=== PATIENT | female | born 1945 | race Caucasian/White ===

== ENCOUNTER 2018-03-04 05:55 | Emergency (ER) | payer MEDICARE, OTHER ==
[~2018-03-04] VITALS: Ht 165.1 cm; Wt 72.6 kg
[~2018-03-04 05:55] MED LIST: ALLEGRA ALLERG180 MG PO; ASPI81CH PO; Augmentin 875-1 EACH PO; B-6200 MG PO; ESOM20 PO; Estrace Vagin42.5 GM TOP; HYDR1TAB94 PO; LIMBREL PO; Mirapex0.25 MG PO; NAPR220 PO; PROBIOTIC1 EAC1 PO; RANI150 PO; SIMV40 PO; Synthroid125 MCG PO; TOLT4 PO; ZESTORETIC 20-1 EAC1 PO
[2018-03-04] MEDS ORDERED: ERGO400 PO (06:17)
[2018-03-04] MEDS ORDERED: VITB2 (06:17)
[2018-03-04 06:31] LABS: Source, Urine Clean Catch
[2018-03-04 06:39] LABS: Bilirubin, Urine Neg (Neg); Blood, Urine 5+ (Neg); Glucose Qualitative, Urine Neg (Neg); Ketones, Urine Neg (Neg); Leukocyte Esterase, Urine 3+ (Neg); Nitrite, Urine Neg (Neg); Protein, Urine 3+ (Neg); Specific Gravity, Urine 1.025 (1.003-1.022); Urobilinogen, Urine NORM (Normal)
[2018-03-04 06:45] LABS: Appearance, Urine Hazy (Clear); Color, Urine Yellow (P-Yellow)
[2018-03-04 06:46] LABS: Bacteria Few /hpf; Red Blood Cells, Urine 25-50 /hpf (0-2); Squamous Epithelial Cells Few /hpf (Few); White Blood Cells, Urine 25-50 /hpf (0-5)
[2018-03-04] MEDS ORDERED: CEPH500 PO (06:59)
[2018-03-04] MEDS ORDERED: Pyridium200 MG PO (06:59)
== END 2018-03-04 07:11 | disposition home or self-care (01) ==
LOC: ER 05:55
PROVIDERS: Emergency Medicine
DX: N39.0 Urinary tract infection, site not specified (principal); Z79.899 Other long term (current) drug therapy; Z88.2 Allergy status to sulfonamides
CPT/HCPCS: 81001; 87077; 87086; 87186; 99283

== ENCOUNTER 2018-05-31 08:48 | Day surgery (SDC) | payer MEDICARE, OTHER ==
[~2018-05-31] VITALS: Ht 165.1 cm; Wt 74.5 kg
[~2018-05-31 08:48] MED LIST changes: +ALLEGRA ALLERG180 M1 PO; +Aspir 8181 MG PO; +CEPH500 PO; +ERGO400 PO; +LEVSOD125 PO; +MAGNESIUM250 MG PO; +NEXIUM 24HR20 M3 PO; +Omega 3 1,0001 EACH PO; +PYRI100 PO; +Pyridium200 MG PO; +TRUBIOTICS PO; +VITB2; +VITB2 PO; +Zantac150 MG PO
--- NOTE | 2018-05-31 12:43 | NUR ---
05/31/18 1243 Madison Velázquez 31CC OD INDIGO WITH NACL AND 7CC OF OVISE GEL INJECTED
== END 2018-05-31 12:44 | disposition home or self-care (01) ==
LOC: ORSCSDS 08:48
PROVIDERS: Student in an Organized Health Care Education/Training Program
PROC: 0DBK8ZX Excision of Ascending Colon, Via Natural or Artificial Opening Endoscopic, Diagnostic (ICD-10-PCS; principal; 2018-05-31 10:15)
PROC: 0DBH8ZX Excision of Cecum, Via Natural or Artificial Opening Endoscopic, Diagnostic (ICD-10-PCS; principal; 2018-05-31 10:15)
PROC: 0DBE8ZX Excision of Large Intestine, Via Natural or Artificial Opening Endoscopic, Diagnostic (ICD-10-PCS; principal; 2018-05-31 10:15)
DX: R19.7 Diarrhea, unspecified (principal); Z86.010 Personal history of colon polyps; D12.0 Benign neoplasm of cecum; D12.2 Benign neoplasm of ascending colon; K57.30 Diverticulosis of large intestine without perforation or abscess without bleeding; I10 Essential (primary) hypertension; E03.9 Hypothyroidism, unspecified; Z87.891 Personal history of nicotine dependence; Z79.899 Other long term (current) drug therapy; Z79.82 Long term (current) use of aspirin
CPT/HCPCS: 88305; J7120